=== PATIENT | female | born 2005 | race Two or more races ===

== ENCOUNTER 2024-12-06 10:05 | Observation (INO) | payer MEDICAID, SELFPAY ==
[2024-12-06] VITALS (16 sets, daily range): BP systolic 111–123; BP diastolic 62–65; PULSE 71–99; RESP 18–98; TEMP 36.8; O2SAT 97–99; BMI 32.2
--- NOTE | 2024-12-06 12:27 | PC.NURSE ---
1226 discharge instructions reviewed, labor precautions, kick counts, copy given, pt agrees/understands.
== END 2024-12-06 12:30 | disposition home or self-care (01) ==
PROVIDERS: Admitting Provider Nurse Practitioner Women's Health; Visit Provider Nurse Practitioner Women's Health
DX: O47.1 False labor at or after 37 completed weeks of gestation (principal); Z3A.37 37 weeks gestation of pregnancy
CPT/HCPCS: 59025; 59899

== ENCOUNTER 2024-12-07 00:38 | Inpatient (IN) | payer MEDICAID, SELFPAY ==
[2024-12-07] VITALS (25 sets, daily range): BP systolic 90–125; BP diastolic 52–93; PULSE 69–128; RESP 15–98; TEMP 36.8–37.2; O2SAT 75–99; BMI 32.1; BMI 31.6
[2024-12-07] MEDS: RINGERS LACTATED 1000 ML 1,000 ML 100 ML IV (01:15)
[2024-12-07] MEDS: Ampicillin Inj 2,000 MG in SODIUM CHLORIDE 0.9% (POP) 100 ML 200 MG IV (01:20)
[2024-12-07 01:28] LABS: Basophils # (Auto) 0.0 Thou/mm3 (0.0-0.2); Basophils % (Auto) 0 % (0-2.5); Eosinophils # (Auto) 0.2 Thou/mm3 (0.0-0.5); Eosinophils % (Auto) 2 % (0-10); Hematocrit 34.2 % (36.0-46.0); Hemoglobin 11.5 g/dL (12.0-16.0); Immature Granulocytes Auto 0.05 Thou/mm3 (0.00-0.00); Lymphocytes # (Auto) 2.0 Thou/mm3 (1.0-4.8); Lymphocytes % (Auto) 24 % (10-50); Mean Corpuscular HGB Conc 33.6 g/dl (31.0-37.0); Mean Corpuscular Hemoglobin 27.8 pg (25.0-35.0); Mean Corpuscular Volume 83 fL (80-100); Monocytes # (Auto) 0.6 Thou/mm3 (0.0-0.8); Monocytes % (Auto) 8 % (0-12); Neutrophils # (Auto) 5.7 Thou/mm3 (1.8-7.7); Neutrophils % (Auto) 66 % (37-80); Nucleated Red Blood Cell # 0.00 Thou/mm3 (0.00-0.00); Nucleated Red Blood Cell % 0 /100 WBC (0); Platelet Count 157 Thou/mm3 (140-440); RDW Standard Deviation 46.6 fL (36.4-46.3); Red Blood Count 4.14 Miln/mm3 (4.00-5.20); White Blood Count 8.6 Thou/mm3 (3.6-11.0)
--- NOTE | 2024-12-07 02:11 | PD.LDHP ---
Documentation for date of: 12/07/24 OB Labor/Induct. HPI History of Present Illness Chief complaint: 19 y/o 37w 6d presents in active labor at 6-7 cm : 2 Para: 1 Term pregnancies: 1 pregnancies: 0 Living children: 1 History of Abortions: Spontaneous and Elective: 0 History of Vaginal deliveries: 1 History of sections: No History of : No Date of last menstrual period: 03/17/24 JUDITH: 12/22/24 Gestational Age (weeks): 37 Gestational Age (days): 6 Gestational age based on last menstrual period: 37 History of present illness: 19 y/o 37w 6d presents in active labor at 6-7 cm priya 2-3 minutes in active labor vertex with a bulging bag, GBS is unknown. Pt has a hx of nvdx1. EFW 3400g. At her anatomy sono fetus was noted to have multiple small VSD, no other sono after that in the records, will notify peds. History of Present Dating criteria: LMP confirmed by 1st trimester US Adequate Care: Yes Ultrasounds: normal 1st trimester US and normal mid trimester US Obstetrical complications: none Medical complications: none Labs Maternal Blood Type: O Pos Labs: Positive: Rubella Titre, Negative: RPR, Hepatitis B, HIV, Chlamydia and Gonorrhea and Unknown: Herpes Type 1, Herpes Type 2, Group Beta Strep and Covid-19 Review of Systems Review of Systems Systems Reviewed: All systems reviewed, normal except as documented Past Medical History Surgical History SURGICAL: Negative Section Meds Home Medications and Allergies Home Medications ?Medication ?Instructions ?Recorded ?Confirmed ?Type ferrous sulfate 325 mg (65 mg mg 12/06/24 History iron) tablet [id number] 1 mg 1 tab PO 12/06/24 History tablet Allergies Allergy/AdvReac Type Severity Reaction Status Date / Time No Known Allergies Allergy Verified 12/07/24 01:11 OB Exam Physical Exam Vital signs: Temp Pulse Resp BP Pulse Ox 98.4 F 92 18 119/70 98 12/07/24 00:50 12/07/24 01:41 12/07/24 00:50 12/07/24 01:41 12/07/24 02:08 Constitutional Constitutional: moderate distress (Secondary to painful contractions) Routine HEENT Exam Head: Present normocephalic and atraumatic Eye: Present EOMI, PERRL and normal accommodation ENT: Present mucous membranes moist Routine Neck Exam Neck: Present full ROM Routine Respiratory Exam Respiratory: Absent respiratory distress Routine Cardiovascular Exam Cardiovascular: Present RRR Routine Abdominal Exam Abdominal: Present soft and normoactive bowel sounds Comments: Gravid Uterus EFW 3400g Routine Exam External: Present normal urethra appearance; Absent lesions Detailed Labor and Delivery Exam Dilation (cm): 7 Effacement (%): 80 Cervix position: mid station: 0 Consistency: soft Presentation: Vertex Membranes: intact Baseline heart rate: 130 monitor accelerations: 15x15 monitor decelerations: None terminal block assembler variability: Moderate (11-25) Contraction frequency (min): 2-3 Contraction duration (sec): 40-60 Tachysystole: No Contraction intensity: Strong Routine Extremities Exam Extremities: Present full ROM Routine Back/Spine/Pelvis Exam Back/Spine: Present full ROM Routine Skin Exam Skin: Present intact, dry and warm Routine Neurological Exam Neurological: Present alert, oriented X3 and CN II-XII intact Routine Psychiatric Exam Psychiatric: Present normal affect and normal thought process OB Results Labs 12/07/24 01:10 Labs: Short CBC 12/07/24 Range/Units 01:10 WBC 8.6 (3.6-11.0) Thou/mm3 Hgb 11.5 L (12.0-16.0) g/dL Hct 34.2 L (36.0-46.0) % Plt Count 157 (140-440) Thou/mm3 OB Assessment & Plan Assessment and Plan (1) Normal labor: Status: Acute (2) Multigravida in third trimester: Status: Acute (3) 37 weeks gestation of : Status: Acute Additional Plan Induction method: none Plan: anticipate NVD, GBS prophylaxis tx and consult prn Additional Plan Comment: Routine admit orders Continuous EFM
[2024-12-07] MEDS: MINERAL OIL 30 ML UDC TOP (02:20)
[2024-12-07] MEDS: OXYTOCIN in NS 20 units 20 UNIT/1,000 ML BAG 125 UNIT IV (02:24)
[2024-12-07] MEDS: LIDOCAINE HCL 1% 20 ML VIAL INFL (02:25)
[2024-12-07 02:42] LABS: Syphilis Nonreactive (Nonreactive)
--- NOTE | 2024-12-07 02:42 | OBDSUM_ITS ---
Data (Jo) Data Hx Section: No Maternal Blood Type: O Pos Rubella Titre: Positive RPR: Non-reactive Labs: Negative: RPR, Hepatitis B, HIV, Chlamydia and Gonorrhea and Unknown: Herpes Type 1, Herpes Type 2 and Group Beta Strep : 2 Para: 1 Term: 1 : 0 Livin Abortions: Spontaneous & Theraputic: 0 Delivery Data (Jo) Labor Data Initiation of labor: Spontaneous Induction/Augmentation Agent: Artificial ROM ROM date: 12/07/24 ROM time: 02:16 Amniotic membrane rupture type: Artificial Amniotic fluid description: Clear Delivery Data EDC: 12/22/24 EDC calculated by:: LMP/early US confirmation Onset of labor date: 12/06/24 Onset of labor time: 23:00 Complete dilation date: 12/07/24 Complete dilation time: 02:15 delivery date: 12/07/24 [place] delivery time: 02:21 Gestational age (weeks): 37 Gestational age (days): 3 Placenta delivery date: 12/07/24 Placenta delivery time: 02:23 Stage 1 total time: Labor - Stage 1 Duration 3 hours and 15 minutes Delivered by: Michael LUONG Delivery nurse: Griselda CARRASCO RN [place] nurse: Belkys LEE RN Detention Deputy at delivery: No Support person(s) at delivery: FATHER OF THE BABY Other staff at delivery: Bing RAMIREZ RN Delivery Method Delivery method: Normal Vaginal Delivery Presentation: Vertex position: OA Anesthesia Type Anesthesia Type: None Delivery Room Medications Delivery room medications: Methergine 0.2 mg IM, Pitocin 20 u IV and other (TXA x1) Placenta Placenta delivery description: Spontaneous Cord blood sent to lab: Yes cord blood collection: Cord Blood Type Episiotomy Episiotomy description: None EBL Estimated blood loss (ml): 300 Umbilical Cord cord description: 3 Vessels Additional Procedures Patient was admitted 7 cm and quickly became complete. AROM performed clear fluids noted. After a couple of pushes patient had an of a viable female infant. Infant anterior shoulder delivered with gentle downward traction subsequent deliver the posterior shoulder and the body without complications. Infant placed on mother's abdomen. Vigorous cry upon delivery. Cord was clamped. Cut by CNM. Cord blood obtained. Three-vessel cord noted. Placenta expelled spontaneously and intact. Patient had a small superficial skin labial laceration repaired using a 4-0 Vicryl on an SH suture. Perineum intact. Excellent hemostasis achieved after vigorous fundal massage and removal of clots from the posterior fornix. Patient had multiple clots in the uterus had to be manually removed. EBL 300. Sponge and needle count correct. Patient to get 2 g Ancef x 1. Mother and baby stable, [id number] and bonding in LDR. [place] Data (Jo) [place] Data [place]'s gender: Female Identification band number: [id number] weight (gms): 3440 g Weight (pounds): 7 lbs and 9.3 ozs 1 minute: 8 5 minutes: 9
[2024-12-07] MEDS: BENZO/LANO/ALOE (Dermoplast) 60 GM CAN 1 SPRAY TOP (02:44)
[2024-12-07] MEDS: METHYLERGONOVINE INJ 0.2 MG/ML VIAL IM (02:44)
[2024-12-07] MEDS: TRANEXAMIC ACID 1,000 MG IVPB 1,000 MG/100 ML BAG 200 MG IV (02:53)
[2024-12-07] MEDS: ceFAZolin/D5W 2 GM IV 2 GM/100 ML BAG IV (03:34)
[2024-12-07 08:17] LABS: Basophils # (Auto) 0.0 Thou/mm3 (0.0-0.2); Basophils % (Auto) 0 % (0-2.5); Eosinophils # (Auto) 0.1 Thou/mm3 (0.0-0.5); Eosinophils % (Auto) 1 % (0-10); Hematocrit 33.6 % (36.0-46.0); Hemoglobin 11.3 g/dL (12.0-16.0); Immature Granulocytes Auto 0.03 Thou/mm3 (0.00-0.00); Lymphocytes # (Auto) 1.3 Thou/mm3 (1.0-4.8); Lymphocytes % (Auto) 12 % (10-50); Mean Corpuscular HGB Conc 33.6 g/dl (31.0-37.0); Mean Corpuscular Hemoglobin 27.8 pg (25.0-35.0); Mean Corpuscular Volume 83 fL (80-100); Monocytes # (Auto) 0.6 Thou/mm3 (0.0-0.8); Monocytes % (Auto) 6 % (0-12); Neutrophils # (Auto) 8.7 Thou/mm3 (1.8-7.7); Neutrophils % (Auto) 81 % (37-80); Nucleated Red Blood Cell # 0.00 Thou/mm3 (0.00-0.00); Nucleated Red Blood Cell % 0 /100 WBC (0); Platelet Count 145 Thou/mm3 (140-440); RDW Standard Deviation 46.2 fL (36.4-46.3); Red Blood Count 4.07 Miln/mm3 (4.00-5.20); White Blood Count 10.7 Thou/mm3 (3.6-11.0)
[2024-12-07] MEDS: DOCUSATE SOD 100 MG CAPSULE PO (09:40)
[2024-12-07] MEDS: IBUPROFEN TAB 400 MG TABLET 800 MG PO (19:23)
[2024-12-08 00:03] VITALS: BP 97/60; PULSE 67; RESP 16; TEMP 36.8; O2SAT 98
[2024-12-08 04:45] VITALS: BP 104/65; PULSE 66; RESP 17; TEMP 36.6; O2SAT 98
[2024-12-08 08:05] VITALS: BP 105/64; PULSE 73; RESP 17; TEMP 36.8; O2SAT 98
--- NOTE | 2024-12-08 08:05 | PD.LDDS ---
DS: Providers Provider Date of admission: 12/07/24 01:09 Primary care physician: Physician No Primary/Family Admitting Provider: Arely Gupta MD Attending Provider on Admission: Arely Gupta MD Attending Provider on DC: Mihcelle Pitts CNM Discharging Provider: Michelle Pitts CNM Anticipated date of discharge: 12/08/24 DS: Diagnosis Discharge Diagnosis (1) Normal spontaneous vaginal delivery: Status: Acute (2) Encounter for care of lactating mother: Status: Acute (3) Normal labor: Status: Acute Problem List Completed Was Problem List Reviewed/Reconciled?: Yes Summary/Hosp Course Brief History: 19 y/o 37w 6d presents in active labor at 6-7 cm priya 2-3 minutes in active labor vertex with a bulging bag, GBS is unknown. Pt has a hx of nvdx1. EFW 3400g. At her anatomy sono fetus was noted to have multiple small VSD, no other sono after that in the records, will notify peds. 12/07/24: Patient was admitted 7 cm and quickly became complete. AROM performed clear fluids noted. After a couple of pushes patient had an of a viable female . anterior shoulder delivered with gentle downward traction subsequent deliver the posterior shoulder and the body without complications. Infant placed on mother's abdomen. Vigorous cry upon delivery. Cord was clamped. Cut by JAYROM. Cord blood obtained. Three-vessel cord noted. Placenta expelled spontaneously and intact. Patient had a small superficial skin labial laceration repaired using a 4-0 Vicryl on an SH suture. Perineum intact. Excellent hemostasis achieved after vigorous fundal massage and removal of clots from the posterior fornix. Patient had multiple clots in the uterus had to be manually removed. EBL 300. Sponge and needle count correct. Patient to get 2 g Ancef x 1. Mother and baby stable, [id number] and bonding in LDR. 12/08/24: PPD#1 patient is stable and afebrile doing well and denies dizziness shortness of breath. Ambulating to the bathroom with no problems voiding with no problems passing gas. No bowel movement yet. Uterus is nontender fundus firm minimal lochia. Patient is breast-feeding well bonding well with infant. Discharge instructions given patient to follow-up with Wendy Pitts CNM in 3 weeks or Galdino CONNER. Peripartum Data Delivery Method: Normal Vaginal Delivery Episiotomy Description: None complications: none [place] 1: Gender: Female Disposition of : home Status at Discharge Cognitive/behavioral status at discharge: Alert and oriented x 3 Functional status at discharge: independent ambulation Overall status at discharge: patient is progressing back to baseline Time Spent with Patient Time attestation: Total time spent providing and/or coordinating discharge services: Time spent: Greater than 30 minutes Exam Vital Signs Temp Pulse Resp BP Pulse Ox 98.4 F 81 18 95/52 L 75 L 12/07/24 00:50 12/07/24 02:44 12/07/24 00:50 12/07/24 02:44 12/07/24 02:18 Constitutional Constitutional: no acute distress Routine HEENT Exam Head: Present normocephalic and atraumatic Eye: Present EOMI, PERRL and normal accommodation ENT: Present mucous membranes moist Routine Neck Exam Neck: Present supple, full ROM and trachea midline Routine Respiratory Exam Respiratory: Present chest non-tender, lungs clear, normal breath sounds and no resp distress Routine Cardiovascular Exam Cardiovascular: Present RRR Routine Abdominal Exam Abdominal: Present soft and normoactive bowel sounds; Absent tenderness or distended Comments: Uterus nontender Fundus firm Routine Exam External: Present normal urethra appearance Comments: minimal lochia Routine Extremities Exam Extremities: Present full ROM Routine Back/Spine/Pelvis Exam Back/Spine: Present full ROM Routine Skin Exam Skin: Present intact, dry and warm Routine Neurological Exam Neurological: Present alert, oriented X3 and CN II-XII intact Routine Psychiatric Exam Psychiatric: Present normal affect and normal thought process Discharge Plan Plan Patient Disposition: HOME (Self Care) Patient condition on transfer: Stable Prescriptions/Referrals Prescriptions/Med Rec: New docusate sodium [Colace] 100 mg capsule 100 mg PO BID Qty: 60 0RF ibuprofen 600 mg tablet 600 mg PO Q6H PRN (Reason: pain) Qty: 90 0RF lanolin 50 % ointment 1 applic topical TID PRN (Reason: skin irritation) Qty: 15 0RF Continued ferrous sulfate 325 mg (65 mg iron) tablet 325 mg PO BID Patient Comments: TAKE 1 TABLET BY MOUTH TWICE A DAY [id number] 1 mg tablet 1 tab PO QDAY Referrals: No Primary/Family,Physician [Primary Care Provider] - Patient/Caregiver Discharge Instructions Meds to Beds: No Discharge Activity: activity as tolerated Other Discharge Activity Instructions:: Follow-up with Michelle Pitts CNM in 3 weeks Education Materials: After a Vaginal , After Delivery Concerns, : Caring for Yourself Print Language: Hungarian Stand Alone Forms: Vi Award Info., Patient Portal Info Letter Discharge Order Discharge Orders: Discharge (Routine); Ordered 12/08/24 Ordered By: Michelle Pitts Planned Discharge Date 12/08/24
[2024-12-08] MEDS: IBUPROFEN TAB 400 MG TABLET 800 MG PO (08:13)
[2024-12-08] MEDS: DOCUSATE SOD 100 MG CAPSULE PO (08:13)
== END 2024-12-08 11:20 | disposition home or self-care (01) | DRG 560 ==
LOC: S4SX 02:52 → S4NX 04:50
PROVIDERS: Nurse Practitioner Women's Health; Admitting Provider Student in an Organized Health Care Education/Training Program; Visit Provider Student in an Organized Health Care Education/Training Program
DX: O70.0 First degree perineal laceration during delivery (principal); Z37.0 Single live birth; Z3A.37 37 weeks gestation of pregnancy
CPT/HCPCS: 36415; 59409; 85025; 86780; 86850; 86900; 86901; 94762; J0290; J0689; J2210; J2590; J3490; J7120; S0191; A9270